=== PATIENT | male | born 1980 | race Asian ===

== ENCOUNTER 2024-01-17 19:38 | Emergency (ER) | payer MEDICAID ==
[~2024-01-17] VITALS: Ht 167.6 cm; Wt 59.9 kg
[2024-01-17] MEDS ORDERED: BICT1TAB PO (19:54)
[2024-01-17 20:26] LABS: BASOPHILS % (AUTO) 0.4 % (0.0-2.0); EOSINOPHILS # (AUTO) 0.6 K/uL (0.0-0.7); EOSINOPHILS % (AUTO) 8.6 % (0.0-7.0); HEMATOCRIT 40.3 % (36.7-47.1); LYMPHOCYTES # (AUTO) 1.2 K/uL (0.8-4.8); LYMPHOCYTES % (AUTO) 17.6 % (20.5-51.5); MEAN CORPUSCULAR HEMOGLOBIN 27.5 uug (23.8-33.4); MEAN CORPUSCULAR HGB CONC 32 g/dL (32.5-36.3); MEAN CORPUSCULAR VOLUME 84.7 fL (73.0-96.2); MONOCYTES # (AUTO) 0.6 K/uL (0.1-1.30); MONOCYTES % (AUTO) 9.2 % (0.0-11.0); NEUTROPHILS # (AUTO) 4.3 K/uL (1.8-8.9); NEUTROPHILS % (AUTO) 64.2 % (38.5-71.5); PLATELET COUNT (AUTO) 354 K/uL (152-348); RED BLOOD CELL COUNT(AUTO) 4.75 MIL/uL (4.06-5.63); RED CELL DISTRIBUTION WIDTH 16.8 % (12.1-16.2); WHITE BLOOD COUNT (AUTO) 6.7 K/uL (3.6-10.2)
[2024-01-17 20:30] LABS: DIFFERENTIAL COMMENT 1
[2024-01-17 20:33] LABS: POTASSIUM 3.6 mmol/L (3.5-5.1)
[2024-01-17] MEDS ORDERED: TRIA60LO7 TP (20:35)
[2024-01-17] MEDS ORDERED: LORA10TA7 PO (20:35)
[2024-01-17] MEDS ORDERED: DOXY-226 PO (20:35)
[2024-01-17] MEDS ORDERED: HYDR-501 PO (20:35)
[2024-01-17 20:43] VITALS: BP 140/88; TEMP 97.7; O2SAT 100
[2024-01-17 20:44] LABS: BILIRUBIN,DIRECT 0.1 mg/dL (0.0-0.2); BILIRUBIN,TOTAL 0.4 mg/dL (0.2-1.0); TOTAL PROTEIN, SERUM 8.3 g/dL (6.4-8.2)
== END 2024-01-17 20:42 | disposition home or self-care (01) ==
LOC: ER 19:38
DX: L85.3 Xerosis cutis (principal); E78.5 Hyperlipidemia, unspecified; Z79.891 Long term (current) use of opiate analgesic; Z98.890 Other specified postprocedural states; Z79.899 Other long term (current) drug therapy; Z88.1 Allergy status to other antibiotic agents
CPT/HCPCS: 36415; 85025; 93005; A4606; A4663